=== PATIENT | male | born 1960 | race Asian ===

== ENCOUNTER → 2022-05-02 11:03 | Outpatient (CLI) | payer BC, SELFPAY ==
--- NOTE | 2022-05-02 | DI.CT.S_ITS ---
PROCEDURE: CT SOFT TISSUE NECK W CON INDICATIONS: Nontoxic single thyroid nodule TECHNIQUE: After the administration of intravenous contrast, 3.0 mm axial sections acquired from the sella to the aortic arch. Additional oblique axial 3.0 mm sections acquired through the pharynx. 3 mm thick coronal and sagittal reformats were generated. For radiation dose reduction, the following was used: automated exposure control. COMPARISON: None. FINDINGS: Image quality: Excellent. Lymph nodes: No enlarged lymph nodes seen throughout the neck. Vessels: Visualized vasculature appears patent. Neck spaces: The oropharynx, nasopharynx, and pharynx demonstrate no mucosal lesions. The vocal cords, false vocal cords, pyriform sinuses, epiglottis, vallecula, and tongue base all appear normal. Extramucosal spaces appear unremarkable. Glands: The parotid and submandibular glands appear normal. Thyroid gland demonstrates enlargement of the right lobe with areas of heterogeneous low attenuation as well as calcification.. Miscellaneous: Visualized brain and orbits appear normal. Lung apices appear clear. Superficial soft tissues appear normal. Bones: No suspicious bony lesions. Visualized sinuses and mastoids appear unremarkable. IMPRESSION: Enlargement with heterogeneous enhancement as well as calcification in the right thyroid lobe. Findings on current exam are overall nonspecific. Further evaluation with thyroid ultrasound and/or FNA is recommended as clinically indicated. Dictated by: Lisa Shields M.D. on 05/02/2022 at 16:38 Approved by: Lisa Shields M.D. on 05/02/2022 at 16:39
== END ==
PROVIDERS: Referring Provider Otolaryngology; Visit Provider Otolaryngology
DX: E04.1 Nontoxic single thyroid nodule (principal)
CPT/HCPCS: 70491; Q9967

== ENCOUNTER 2023-03-31 07:55 | Day surgery (SDC) | payer OTHER, SELFPAY ==
[2023-03-31 08:37] VITALS: BP 123/81; PULSE 64; RESP 16; TEMP 36.4; O2SAT 97; BMI 30.4
[2023-03-31] MEDS: LACTATED RINGERS 1,000 ML 150 ML IV (08:49)
--- NOTE | 2023-03-31 10:10 | PM.HP.1 ---
History of Present Illness History of Present Illness Date Patient Seen: 03/31/23 Time Patient Seen: 10:10 Chief complaint: Screening Colonoscopy Narrative: H/o colon polyps. Last scope 5 years ago. No family history for colon cancer PFS Social History household members: spouse Smoking Status: Never smoker alcohol intake: never Meds Home Medications and Allergies Home Medications Medication Instructions Recorded Confirmed Type Cetirizine Hydrochloride (Zyrtec) 10 mg PO Q DAY ##0 05/24/10 03/31/23 History Losartan Potassium (Cozaar) 50 mg PO Q DAY ##0 05/24/10 03/31/23 History atenolol 50 mg tablet 25 mg PO BID ##0 05/24/10 03/31/23 History levothyroxine 112 mcg tablet 112 mcg PO DAILY 03/31/23 03/31/23 History Allergies Allergy/AdvReac Type Severity Reaction Status Date / Time No Known Drug Allergies Allergy Verified 03/31/23 08:27 Review of Systems Review of Systems ROS: Yes All systems reviewed with the patient and are negative except as otherwise documented Exam Vital Signs (past 8 hours): - 03/31/23 08:37 Temperature 97.6 F Pulse Rate 64 Respiratory Rate 16 Blood Pressure 123/81 Pulse Oximetry 97 Oxygen Delivery Method Room Air Oxygen Delivery Method Room Air Const General: cooperative, healthy appearing and comfortable Nutritional Appearance: overweight HENAZ Head: normocephalic and atraumatic Eyes Periorbital: periorbital findings normal Sclera: sclerae normal Neck Neck: trachea midline Resp Effort & Inspection: normal respiratory effort and able to speak in complete sentences Cardio Rate: regular rate Rhythm: regular rhythm GI Palpation: soft and No tender Skin General: turgor normal Neuro General: patient alert, patient awake and patient oriented x3 Cognition: normal cognition Psych Appearance: grossly normal Mental Status: mental status grossly normal Judgment: judgment good Assessment & Plan Assessment & Plan narrative: H/o colon polyps Plan: Colonoscopy with anesthesia Time Spent With Patient Time with patient: less than 30 minutes
--- NOTE | 2023-03-31 10:45 | PM.OP.COLON ---
Operative Date/Time/Diagnoses Date of procedure: 03/31/23 Time of procedure: 10:46 Pre-op diagnosis: History of colon polyps Post-op diagnosis: same Procedure & Clinicians Study performed: Colonoscopy with anesthetic Same procedure as scheduled: Yes Indications: History of colon polyps Surgeon: Dedra Becerra Procedure Notes Procedure in detail: Preop diagnosis: History of colon polyps Postop diagnosis: Same Operative procedure: Colonoscopy with anesthetic Surgeon: Stephanie Becerra MD Findings: No polyps identified. No significant diverticulosis. Procedure: Patient placed in lateral position. Rectal exam performed showing normal tone no masses. Colonoscope inserted into the rectum revealing an excellent prep. Scope was advanced to the ileocecal valve with minimal difficulty. Insufflation and extraction scope including retroflex had the above findings. Impression: No polyps identified this time, no diverticulosis Plan: Repeat colonoscopy in 5 years due to history of colon polyps Specimen(s): none sent Complications: none Post-procedure Recommendations: Colonoscopy in 5 years Follow up: as needed Disposition: PACU
[2023-03-31 10:49] VITALS: BP 92/63; PULSE 59; RESP 16; TEMP 36.3; O2SAT 98
[2023-03-31 10:54] VITALS: BP 92/62; PULSE 61; RESP 16; O2SAT 97
[2023-03-31 10:59] VITALS: BP 101/69; PULSE 56; RESP 15; O2SAT 97
[2023-03-31 11:05] VITALS: BP 102/68; PULSE 57; RESP 20; TEMP 36.7; O2SAT 97
== END 2023-03-31 11:14 | disposition home or self-care (01) ==
PROVIDERS: PCP Nurse Practitioner Family; Referring Provider Surgery; Visit Provider Surgery
PROC: 0DJD8ZZ Inspection of Lower Intestinal Tract, Via Natural or Artificial Opening Endoscopic (ICD-10-PCS; CPT 45378; principal; 2023-03-31 09:30)
DX: Z12.11 Encounter for screening for malignant neoplasm of colon (principal); Z86.010 Personal history of colon polyps
CPT/HCPCS: 45378